=== PATIENT | female | born 1955 | race Caucasian/White ===

== ENCOUNTER → 2023-03-18 12:25 | Outpatient (REF) | payer OTHER, SELFPAY | LOC: MRI 3T 12:25 | PROVIDERS: ATTENDING PHYSICIAN Internal Medicine | DX: N28.1 Cyst of kidney, acquired (principal) | CPT/HCPCS: 74183; A9575 ==

== ENCOUNTER → 2023-07-04 08:54 | Outpatient (REF) | payer OTHER, SELFPAY | LOC: WDC 08:54 | PROVIDERS: ATTENDING PHYSICIAN Internal Medicine | DX: R92.2 Inconclusive mammogram (principal) | CPT/HCPCS: 76641 ==

== ENCOUNTER → 2023-12-26 08:41 | Outpatient (REF) | payer OTHER, SELFPAY | LOC: PAVMRI 08:41 | PROVIDERS: ATTENDING PHYSICIAN Internal Medicine | DX: N28.1 Cyst of kidney, acquired (principal) | CPT/HCPCS: 74183; A9575 ==

== ENCOUNTER 2024-03-25 20:49 | Observation (INO) | payer MEDICARE, OTHER, SELFPAY ==
[2024-03-25 15:10] VITALS: BP 134/87
[2024-03-25 15:41] LABS: ALT (SGPT) 31 U/L (0-35); AST (SGOT) 38 U/L (14-36); Albumin 4.8 g/dl (3.5-5.0); Alkaline Phosphatase 72 U/L (38-126); Blood Urea Nitrogen 13 mg/dl (7-17); Calcium 9.5 mg/dl (8.4-10.2); Carbon Dioxide 29 mmol/L (22-30); Chloride 99 mmol/L (98-107); Glucose 123 mg/dl (70-99); Potassium 3.5 mmol/L (3.5-5.1); Sodium 137 mmol/L (135-145); Total Protein 7.4 g/dl (6.3-8.2); eGFR > 60.00
[2024-03-25 15:42] LABS: Hematocrit 39.9 % (37.0-47.0); Hemoglobin 13.4 g/dL (12.0-16.0); Mean Corp Hgb Conc. 33.6 g/dL (33.0-37.0); Mean Corpuscular Hgb 29.5 pg (27.0-31.0); Mean Corpuscular Volume 87.9 fL (81.0-99.0); Mean Platelet Volume 9.9 fL (7.4-10.4); Platelet Count 197 10^3/uL (130-400); Red Blood Cell Count 4.54 10^6/uL (4.20-5.40); Red Cell Dist. Width 12.2 % (11.5-14.5); White Blood Cell Count 4.5 10^3/uL (4.8-10.8)
[2024-03-25 15:52] LABS: Troponin I < 0.012 ng/ml
[2024-03-25 16:09] LABS: % Basophils 0.7 % (0-2); % Eosinophils 4.7 % (0-6); % Immature Granulocytes 0.4 % (0-0.5); % Lymphocytes 36.9 % (20.5-51.1); % Monocytes 11.7 % (1.7-9.3); % Neutrophils 45.6 % (42.2-75.2); Absolute Eosinophils 0.2 10^3/uL (0-0.7); Absolute Lymphocytes 1.6 10^3/uL (1.2-3.4); Absolute Monocytes 0.5 10^3/uL (0.1-0.6); Nucleated Red Blood Cells % 0 %
--- NOTE | 2024-03-25 17:38 | ED.GENMED ---
History of Present Illness
General
Chief Complaint: Chest Pain
Source: patient
Time Seen by Provider: 03/25/24 17:19
History of Present Illness
History of Present Illness:
68-year-old female presents to the emergency room complaining of chest discomfort. Patient states that she has been having this chest discomfort intermittently for the past 3 or so days. It seems to occur when she eats. It goes away when she
rests. She denies associated diaphoresis or nausea. She has no discomfort at the time of my evaluation.
Past History
Past History
ED Past Medical History: GERD, Hypothyroidism and Other (Pulmonary embolus)
ED Past Surgical History: and Orthopedic (Ankle surgery)
Social History
Tobacco: Non-smoker
Alcohol: Occasional
Drug: None
Living: with family
Employment: Employed
Phy Exam
Physical Exam
Physical Exam:
General: Awake, Alert, Oriented X3. No acute distress.
Vitals: unremarkable
Head: Atraumatic
Eyes: Pupils equal, EOMI
Throat: Airway intact, no exudates
Neck: Trachea midline
Lungs: Clear and equal b/l
Heart: Regular rate, no murmurs
Abd: Soft, Nontender, No pulsatile mass
Neuro: Nonfocal
Skin: Warm, dry, no rash
Extremities: pulses equal b/l, no edema
Scores
Heart Score for Chest Pain Patients
STEMI patient?: No
History: Highly Suspicious
ECG: Nonspecific Repolarization
Age: >/= 65 years
Risk Factors: 1 or 2 Risk Factors
Troponin: </= Normal Limit
Heart Score for Chest Pain Patients: 6
Heart Score Risk: 20.3% MACE over next 6 weeks
Course
Orders/Labs/Results
Orders:
Orders
03/25/24 15:06
ECG [Electrocardiogram (*1)] Urgent
Reason for Study: Chest Pain
EKG- Treatment ONCE
03/25/24 15:19
Complete Blood Count/With Diff Urgent
Comprehensive Metabolic Panel Urgent
Troponin I Urgent
03/25/24 17:37
CR Chest - 2 Views Urgent
Comment:
Reason For Exam: chest pain
03/25/24 18:28
Troponin I Urgent
03/25/24 18:36
Electrocardiogram (*1) Urgent
Reason for Study: Chest Pain
EKG- Treatment ONCE
03/25/24 18:46
Acetaminophen [Tylenol] 650 mg .ROUTE .STK-MED ONE
03/25/24 19:11
Acetaminophen [Tylenol] 650 mg PO NOW STA
03/25/24 19:15
EKG [Electrocardiogram (*1)] Urgent
Reason for Study: Chest Pain
EKG- Treatment ONCE
03/25/24 19:38
CT Chest PE Study Urgent
Comment:
Reason For Exam: chest pain
03/25/24 19:41
Aspirin Chewable [Low Strength Aspirin] 324 mg PO NOW STA
Abnormal Lab Results
03/25/24
15:19
WBC 4.5 L 10^3/uL
(4.8-10.8)
Monocytes % 11.7 H %
(1.7-9.3)
Glucose 123 H mg/dl
(70-99)
AST 38 H U/L
(14-36)
03/25/24 15:19
03/25/24 15:19
Vital Signs
Initial and Last Documented VS:
Initial Vital Signs
Temp Pulse Resp BP Pulse Ox
98.0 F 86 16 134/87 95
03/25/24 15:10 03/25/24 15:10 03/25/24 15:10 03/25/24 15:10 03/25/24 15:10
Last Documented Vital Signs
Temp Pulse Resp BP Pulse Ox
98.0 F 78 11 133/92 93
03/25/24 15:10 03/25/24 19:30 03/25/24 19:30 03/25/24 19:14 03/25/24 19:30
MDM/Problems Addressed
Differential Diagnosis Includes:
usa, nstemi, chest wall pain, PE
MDM/Problems Addressed:
Patient presents with chest pain which is currently exertional. No significant chest pain or shortness of breath at rest. EKG shows some Q waves in the inferior leads suspicious for previous inferior wall OK but the patient does not believe she
has any known history of coronary artery disease. Labs are all reassuring here with a troponin that is negative x 2. However her story makes me uncomfortable sending her home. I discussed the patient's presentation with Dr. Beach who is
on-call for cardiology. She agrees with observation overnight and cardiology evaluation in the morning. Toward the end of the patient's evaluation she added that she has a history of a DVT but no history of PE. I will obtain a CT of the chest
though my suspicion for PE is fairly low however I do not have a good explanation for the chest pain at this point. Serial EKGs have not shown any significant change.
Chronic conditions affecting care: HTN
*Radiology
Radiology exam reviewed: preliminary read by ED provider (No acute abnormalities on the chest x-ray)
*Pulse Oximetry
Patient hypoxic: no
*EKG
Interpreted by ED Provider?: Yes
Heart Rate: 83
Rate: normal
Rhythm: sinus
QRS Pattern: other (Nonspecific intraventricular conduction delay, Q waves noted in two 3-02/12.)
Ischemia: non-specific ST changes
*Pattern Grader Cutter Interpretation
Rate: normal
Interpretation: normal
Rhythm: sinus
*Critical Care Note
Total Time (30-74mins, 75-104mins- exclusive of procedures): Not Applicable
ED Attending Note
-
Portions of this chart may have been created with voice recognition software.� Occasional wrong word or��sound alike� substitutions may have occurred due to the inherent limitations of voice recognition software.
Discharge Plan
Departure
Patient Disposition: Admit
Date of Disposition: 03/25/24
Time of Disposition: 19:41
Admit to: Telemetry
Presentation/result/management discussed w/ accepting MD/DO: Hospitalist
Condition: Fair
Discharge Problem:
Chest pain
Referrals:
Gracie Chapin MD [Family Provider] -
Interventions
Interventions:
*Risk Screen - Suicide Last Done: 03/25/24 15:10
*General Assessment Last Done: 03/25/24 15:10
*Neglect/Abuse Screening Last Done: 03/25/24 15:10
*ED COVID-19 Vaccine History Last Done: 03/25/24 15:10
ED- Cardiac Assessment Last Done: 03/25/24 17:54
Discharge Date and Time
Print Language: EAST [place]
[2024-03-25 17:53] VITALS: BMI 27.0
[2024-03-25 19:07] LABS: Troponin I < 0.012 ng/ml
[2024-03-25] MEDS: TYLENOL 650 MG PO (19:11)
[2024-03-25 19:14] VITALS: BP 133/92
[2024-03-25] MEDS: LOW STRENGTH ASPIRIN 324 MG PO (19:43)
--- NOTE | 2024-03-25 19:48 | HPS.HSE ---
Addendum entered and electronically signed by Saurav Rodriguez DO 03/25/24 21:54:
Patient seen and examined independently. Agree with findings and plan as set forth by KENNETH Martinez.
Patient is a 68y F with PMH significant for hypothyroidism and prior DVT / PE who presents to ED complaining of chest pain. Patient reports intermittent symptoms of chest discomfort and dyspnea with activity over the past 2 weeks or so. Prior
to that she was very active, jogged regularly and had no issues. She has recently noted heart pounding and pain with heartbeat. This occurs with activity, but has also woken her from sleep and occurred at rest. She has appreciated sense of
dyspnea with activity such as climbing stairs, etc. These symptoms have progressed over the past 2 weeks and today she presents to the ED for further evaluation.
Patient notes that this has been a stressful few weeks due to family illness ([id number] ).
She has been traveling [id number] to [place].
Ass:
Chest Pain
Hypothyroidism
History of DVT / PE
Plan:
Observe overnight for further evaluation and treatment.
EKG is unremarkable with no evidence for active ischemia.
Troponin is undetectable x 2 sets thus far.
ED spoke with Cardiology who requested hospitalization overnight and serial enzymes.
Repeat troponin. Follow for changes in symptoms.
Cardiology eval in AM for additional recommendations.
CT done as well given recent travel history and prior h/o DVT - no evidence for PE.
Note made of - likely chronic - T6 and T7 vertebral compression fractures (mild).
Original Note:
Family Physician
-
Family Physician: Gracie Chapin
Chief Complaint
-
chest pain
History of Present Illness
Patient is a 68-year-old female with past medical history significant for hypothyroidism and Hx DVT/PE who presented to [facility] ED for evaluation of chest pain. Patient reports intermittent chest pain on and off for several months, she
reports a lot of external stressors including sick MIL, of new twin grandchildren and responsibility of disabled brother that she originally was all contributing to symptomatic anxiety. She states most recently she has noticed that she has had
exertional chest pain with items like walking up the stairs is associated with shortness of breath and sometimes nausea. She describes chest discomfort as it feeling like someone is squeezing water out of a towel, it does not radiate and resolves
with rest. This morning she stated she woke with the pain from a sleep and decided it was time to get evaluated. She denies any fever, chills, dizziness, palpitations, cough, vomiting, constipation, diarrhea or urinary symptoms.
Medical History
Past Medical History
Past Medical History: Reports Other
Additional Past Medical History:
hypothyroidism
Hx DVT/PE
Past Surgical History: Reports Other
Additional Past Surgical History:
x2
breast biopsy
Fx right ankle repair
Social History
Tobacco: Former Smoker
Alcohol: Occasional
Drug: None
Personal:
Living: With Family
Employment: Retired
Family History
Family History: Other (Dad: CAD; Mother: Breast ca)
Allergies / Home Medications
Allergies reflects when Allergies were last updated in [facility].
Home Medications with original date entered in [facility]
Allergy/Medication List:
Allergies
Allergy/AdvReac Type Severity Reaction Status Date / Time
narcotics Allergy Unknown Uncoded 03/25/24 15:15
Home Medications
levothyroxine 75 mcg tablet 75 mcg PO DAILY 03/25/24
Review of Systems
-
History Source: Patient
Constitutional: Reports Sleep Disturbance
EENT: Reports No Symptoms
Respiratory: Reports Other (shortness of breath with exertion )
Cardiac: Reports Chest Pain
Abdomen/GI: Reports Nausea
: Reports No Symptoms
Musculoskeletal: Reports No Symptoms
Skin: Reports No Symptoms
Neurological: Reports No Symptoms
Endocrine: Reports No Symptoms
Hematologic/Lymphatic: Reports No Symptoms
Psych: Reports No Symptoms
Physical Exam
Vital Signs
Vital Signs
Temp Pulse Resp BP Pulse Ox
98.0 F 78 11 133/92 93
03/25/24 15:10 03/25/24 19:30 03/25/24 19:30 03/25/24 19:14 03/25/24 19:30
Physical Exam
General: Well Developed, Well Nourished, No Apparent Distress, Comfortable and Conversant
HEENT: NormoCephalic, Moist mucous membranes, Atraumatic, PERRLA, [place] Conjunctivae, Nose Appears Normal and Ears Appear Normal
Respiratory: Clear and Non Labored Respirations
Cardiac: S1/S2 and Regular Rhythm; No Murmur, Rub or Gallop
Breast: Deferred by me
GI: Soft, Non Tender, Non Distended and Normal Bowel Sounds; No Organomegaly
Rectal: Deferred by Provider
Genito-urinary: Deferred by me
Musculoskeletal: No Clubbing, No Cyanosis and No Edema
Skin: Warm and IV/Catheter Site; No Rash
Neuro: Awake, Alert, AO x 3 and Nonfocal/grossly intact
Psych: Calm and Intact Judgment/Insight
Laboratory Results
-
03/25/24 15:19
03/25/24 15:19
Laboratory Results
Total Bilirubin 1.0 mg/dl (0.2-1.3) 03/25/24 15:19
AST 38 U/L (14-36) H 03/25/24 15:19
ALT 31 U/L (0-35) 03/25/24 15:19
Alkaline Phosphatase 72 U/L (38-126) 03/25/24 15:19
Troponin I < 0.012 ng/ml 03/25/24 18:28
Data Reviewed
-
Medical Tests (Nuc Med, Echo, EKG etc): Report Reviewed by me (EKG: NORMAL SINUS RHYTHM INFERIOR INFARCT (CITED ON OR BEFORE 25-MAR-2024) ABNORMAL ECG)
Lab Data: Labs Reviewed by me
Impression/Plan
-
IMPRESSION/PLAN:
#chest pain
EKG: NORMAL SINUS RHYTHM
INFERIOR INFARCT (CITED ON OR BEFORE 25-MAR-2024)
Trop: <0.012, 0.012
- admit to telemetry
- consult cardiology
- trend troponin
#hypothyroidism
- continue levothyroxine
#Hx DVT/PE
Code status: Full code
DVT prophylaxis: SCDs
[2024-03-25 20:00] VITALS: BP 131/105
[2024-03-25 20:13] VITALS: BP 130/78
[2024-03-25 21:00] VITALS: BP 124/75
--- NOTE | 2024-03-25 21:30 | PTCARENOTE ---
Patient arrived on unit from ED. Patient ambulated to bed. A&Ox3. Oriented to unit. Call mena within reach. Care ongoing.
[2024-03-25 21:37] VITALS: BP 134/83; BMI 28.0
[2024-03-25 23:07] LABS: Troponin I < 0.012 ng/ml
[2024-03-26 03:40] VITALS: BP 114/76
[2024-03-26 04:06] LABS: Hematocrit 37.8 % (37.0-47.0); Hemoglobin 12.8 g/dL (12.0-16.0); Mean Corp Hgb Conc. 33.9 g/dL (33.0-37.0); Mean Corpuscular Hgb 29.2 pg (27.0-31.0); Mean Corpuscular Volume 86.3 fL (81.0-99.0); Platelet Count 184 10^3/uL (130-400); Red Blood Cell Count 4.38 10^6/uL (4.20-5.40); Red Cell Dist. Width 12.1 % (11.5-14.5); White Blood Cell Count 4.7 10^3/uL (4.8-10.8)
[2024-03-26 04:21] LABS: ALT (SGPT) 27 U/L (0-35); AST (SGOT) 32 U/L (14-36); Albumin 4.1 g/dl (3.5-5.0); Alkaline Phosphatase 71 U/L (38-126); Blood Urea Nitrogen 10 mg/dl (7-17); Calcium 9.2 mg/dl (8.4-10.2); Carbon Dioxide 28 mmol/L (22-30); Chloride 102 mmol/L (98-107); Estimated Creatinine Clearance 81 ml/min; Glucose 96 mg/dl (70-99); HDL Cholesterol 44 mg/dl; LDL Cholesterol, Calculated 100 mg/dl; Sodium 138 mmol/L (135-145); Total Bilirubin 0.9 mg/dl (0.2-1.3); Total Cholesterol 167 mg/dl (50-199); Total Protein 6.5 g/dl (6.3-8.2); Triglyceride 117 mg/dl (10-149); Very Low Density Lipoprotein 23 mg/dl (0-30); eGFR > 60.00
[2024-03-26 04:33] LABS: Troponin I < 0.012 ng/ml
[2024-03-26] MEDS: SYNTHROID 75 MCG PO (05:03)
[2024-03-26 08:05] VITALS: BP 113/69
[2024-03-26 09:43] LABS: Glycohemoglobin (HgbA1c) 5.6 % (4.0-5.6)
--- NOTE | 2024-03-26 10:16 | CM ---
Reviewed the chart notes and spoke with the patient at the bedside. Patient admitted under observational status. The WALKER letter was provided and explained. The patient had no questions with regards to the letter.
The patient resides with her spouse in a two story home with two steps to enter. The patient reports no DME/SNF in the past, but did have VN. Agency name unknown. The patient confirmed her pharmacy of choice is the [facility]. continues to be available to patient/family and is monitoring medical plan for needs at discharge.
Plan: Discharge to home when medically stable. No needs identified at this time.
--- NOTE | 2024-03-26 13:54 | CON.CAR ---
Addendum entered and electronically signed by Eileen Terry DO 03/26/24 16:34:
I saw and examined the patient.
The Ski Lift Attendant's note was reviewed and I agree with the note.
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 Patient reports pounding heart sensation starting several weeks ago. Pounding heart sensation with activity and sometimes at rest. Patient has been under an incredible amount of
stress dealing with her chronically ill brother in [place], the recent unexpected illness and passing of her mother in law and the joyful stress of new twin grandchildren in [place]. Patient has been travelling from [place] to [place] and then [place] to [place]
frequently. Patient describes carrying her twin grandbabies and having chest pounding such that she had to take a break from activity. Then this past weekend she had chest pain that she thought was indigestion, but described as SSCP while getting
ready for a [employer] democrat and then again while at the democrat. Then Saturday after grocery shopping the pain was so bad that she could not load groceries into the car and more pain. She had more pain yesterday and it lasted for hours so she came to
[facility]. Pain seemed to get worse in the ER described as pounding in her chest and pain with every beat of her heart that was worse with activity. She leaves this weekend for a [employer] cruise.
General: No acute distress, AAOX3
Neck: Negative JVD
Heart: Regular, Negative S3 positive S1/S2, Negative S4, No murmur
Lungs: CTA b/l, negative wheezes/rales/rhonchi
Abd: Positive BS, NT/ND, neg rebound/rigidity/guarding
Ext: Negative cyanosis/clubbing/edema
Neuro: nonfocal
Plan:
Atypical chest pain, unlikely to be related to obstructive coronary artery disease
-Twelve-lead EKG normal sinus rhythm with inferior infarct pattern. No dynamic ST-T wave changes
-Cardiac troponin I serially undetected, less than 0.012
-CTA chest PE study 01/12/2025. No PE. Aorta without aneurysm or dissection. No pericardial effusion. Lungs hypoinflated with mild groundglass opacity. No consolidation or pneumonia. She also has a age-indeterminate T6 and T7 vertebral
compression deformities likely chronic.
-Stress echocardiogram done today was reviewed with patient. She exercised for 9 minutes 1 seconds achieving 10 METS and 98% MPHR. Stress EKG negative for ischemia. Stress echocardiogram imaging negative for ischemia.
Family history for coronary artery disease
-Will arrange for outpatient cardiac follow-up in the office for cardiac preventative care
-Hemoglobin A1c top normal, 5.6%.
-Blood pressure normotensive not requiring medication
-BUN/creatinine normal, 10/0.7. Sodium potassium normal 38/4. LFTs within normal limits.
-Total cholesterol 167, LDL 100, HDL 44, triglycerides 117
-Hemoglobin 12.8
-We discussed cardiac healthy diet, exercise and symptom monitoring.
History of hypothyroidism on levothyroxine�TSH pending
History of DVT and PE with brief VD RF in January 2005
-Follow-up with primary care physician regarding mild groundglass opacities noted on CTA
-CTA negative for PE
Outpatient cardiac follow-up to be arranged
Discussed with hospitalist
Will sign off, recall if needed
Original Note:
Consultation
Consultation Request
Date/Time Consultation Requested: 03/25/24 at 2148
Date/Time Consultation Performed: 03/26/24 at 1354
Requesting Provider: Dr. Gomez
Performing Provider: Dr. Terry
Reason for Consultation: chest pain
Medical History
-
History of Present Illness:
Patient came to [facility] with chest pain and cardiology is now consulted. Patient reports pounding heart sensation starting several weeks ago. Pounding heart sensation with activity and sometimes at rest. Patient has been under an incredible amount of
stress dealing with her chronically ill brother in [place], the recent unexpected illness and passing of her mother in law and the joyful stress of new twin grandchildren in [place]. Patient has been travelling from [place] to [place] and then [place] to
frequently. Patient describes carrying her twin grandbabies and having chest pounding such that she had to take a break from activity. Then this past weekend she had chest pain that she thought was indigestion, but described as SSCP while getting
ready for a [employer] democrat and then again while at the democrat. Then Saturday after grocery shopping the pain was so bad that she could not load groceries into the car and more pain. She had more pain yesterday and it lasted for hours so she came to
[facility]. Pain seemed to get worse in the ER described as pounding in her chest and pain with every beat of her heart that was worse with activity.
PMH:
h/o DVT and PE with respiratory failure and brief VDRF 01/2005
Hypothyroid
Past Medical History
Past Medical History: Other (in HPI)
Past Surgical History: and Orthopedic
Social History
Tobacco: Former Smoker
Alcohol: Occasional
Drug: None
Personal:
Living: With Family
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
Family History
Family History: Cancer, Diabetes and Hypertension
Allergies / Home Medications
Allergy/AdvReac Type Severity Reaction Status Date / Time
narcotics Allergy Unknown Uncoded 03/25/24 15:15
�Medication �Instructions �Recorded �Confirmed �Type
levothyroxine 75 mcg tablet 75 mcg PO DAILY Thyroid 03/25/24 03/25/24 History
Review of Systems
-
History Source: Patient and Family ( sitting bedside)
All other systems: Negative unless noted
Physical Exam
Vital Signs
Temp Pulse Resp BP Pulse Ox
97.9 F 66 14 113/69 97
03/26/24 08:05 03/26/24 08:05 03/26/24 08:05 03/26/24 08:05 03/26/24 08:05
GEN: NAD. AAOx3
HEENT: EOMI, MMM
LUNGS: RA. CTA B/L, no wheeze
CV: SR on tele. Reg, S1/S2, no murmur
ABD: soft, BS+, NT, ND
EXT: No clubbing, cyanosis, lesions or edema B/L
NEURO: Gross non-focal
SKIN: Warm, dry and pink. No rash
Lab Results
03/26/24 03:43
03/26/24 03:43
Troponin I < 0.012 ng/ml 03/26/24 03:43
Impression / Plan
-
PCP: Dr. Chapin
Cardiology: Seen by Dr. Mccormick in 2005
Impression:
Admitted with chest pain 03/25/24
Serially undetectable Troponin
h/o DVT and PE with respiratory failure and brief VDRF 01/2005
Hypothyroid
Echo 02/15/2005: EF 60%, no evidence of intracardiac clot or tumor, no evidence of pericardial effusion, mitral aortic and tricuspid valves all appear normal
Echo 03/26/2024: Preliminary study, preserved EF, no significant valve disease
Plan:
-Patient came to [facility] with chest pain and cardiology is now consulted. Patient reports pounding heart sensation starting several weeks ago. Pounding heart sensation with activity and sometimes at rest. Patient has been under an incredible amount of
stress dealing with her chronically ill brother in [place], the recent unexpected illness and passing of her mother in law and the joyful stress of new twin grandchildren in [place]. Patient has been travelling from [place] to [place] and then [place] to [place]
frequently. Patient describes carrying her twin grandbabies and having chest pounding such that she had to take a break from activity. Then this past weekend she had chest pain that she thought was indigestion, but described as SSCP while getting
ready for a [employer] democrat and then again while at the democrat. Then Saturday after grocery shopping the pain was so bad that she could not load groceries into the car and more pain. She had more pain yesterday and it lasted for hours so she came to
[facility]. Pain seemed to get worse in the ER described as pounding in her chest and pain with every beat of her heart that was worse with activity.
-ECG reviewed by me is SR without acute ST changes.
-Troponin serially undetectable which is reassuring
-Patient with chest pain with activity and reports that she is leaving for a cruise tomorrow making plans for an expeditious outpatient work-up difficult. Will check stress echo now.
-Resting echo with preserved EF and no significant valve disease.
-Patient with h/o DVT/PE in the setting of ankle fracture in 2004, but CT chest was negative for PE last night.
--- NOTE | 2024-03-26 14:22 | W.PN.HOSP.TC ---
Addendum entered and electronically signed by Po Gomez MD 03/26/24 17:20:
[id number]
Addendum entered and electronically signed by Po Gomez MD 03/26/24 17:17:
No obvious abnormalities on stress echocardiogram
Follow-up PCP, cardiology, pulmonary outpatient
Addendum entered and electronically signed by Po Gomez MD 03/26/24 16:35:
Stress test unremarkable;
Follow-up PCP, cardiology, pulmonary outpatient (has groundglass opacity, can follow-up with outpatient pulmonary)
Original Note:
Today's Communication/Plan
-
ECHO
Cards eval
Follow-up TSH with reflex free T4
Heparin subcu for DVT prophylaxis
Possible DC today after echo, cardiology evaluation versus further inpatient workup
Assessment / Plan
Assessment / Plan
Physical Exam
General: Well Developed, Well Nourished, No Apparent Distress, Comfortable and Conversant
HEENT: NormoCephalic, Moist mucous membranes, Atraumatic, PERRLA, [place] Conjunctivae, Nose Appears Normal and Ears Appear Normal
Respiratory: Clear and Non Labored Respirations
Cardiac: S1/S2 and Regular Rhythm; No Murmur, Rub or Gallop
Breast: Deferred by me
GI: Soft, Non Tender, Non Distended and Normal Bowel Sounds; No Organomegaly
Rectal: Deferred by Provider
Genito-urinary: Deferred by me
Musculoskeletal: No Clubbing, No Cyanosis and No Edema
Skin: Warm and IV/Catheter Site; No Rash
Neuro: Awake, Alert, AO x 3 and Nonfocal/grossly intact
Psych: Calm and Intact Judgment/Insight
#Chest pain
� Troponins negative
� EKG unremarkable
� Possibility of anxiety although difficult to confirm at this time
� Follow-up echocardiogram and decide on further inpatient versus outpatient workup thereafter
� Follow-up cardiology evaluation
� Follow-up TSH with reflex free t4
#Hypothyroidism
� Continue Synthroid
� Follow-up TSH with reflex free t4
#Hx DVT/PE
off anticoagulation
-no pe
-f/u pcp outpatient
#DVT ppx
HSQ
More than 30 minutes spent in discharge including
Final examination of the patient
Summarizing hospital stay
Instructions for continuing care to all relevant caregivers
Preparation of discharge records, prescriptions, and referral forms
Total time spent (37 in minutes):
Anticipated Discharge: Today
Subjective/Interval History
-
Date of Service: March 26, 2024
still with intermittent dull pain
Objective Data
-
Labs:
Laboratory Results
03/26/24
03:43
WBC 4.7 L
Hgb 12.8
Hct 37.8
Plt Count 184
Sodium 138
Potassium 4.0
Chloride 102
Carbon Dioxide 28
BUN 10
Creatinine 0.7
Glucose 96
Calcium 9.2
Total Bilirubin 0.9
AST 32
ALT 27
Alkaline Phosphatase 71
Vital Signs:
Vital Signs
Temp Pulse Resp BP Pulse Ox
97.9 F 66 14 113/69 97
03/26/24 08:05 03/26/24 08:05 03/26/24 08:05 03/26/24 08:05 03/26/24 08:05
I&O
03/25/24 03/26/24 03/27/24
06:59 06:59 06:59
Intake Total 240 / 240
Balance 240 / 240
Review of Systems
-
History Source: Patient
All other systems: Not reviewed unless documented
Data Reviewed
-
Diagnostic Radiology: Report Reviewed by me
CT Scan: Report Reviewed by me
Labs: Labs Reviewed by me
[2024-03-26 15:28] VITALS: BP 123/69
[2024-03-26 16:44] LABS: TSH Reflex To Free T4 7.37 uIU/ml (0.47-4.68)
[2024-03-26 17:13] LABS: Free T4 0.98 ng/dl (0.78-2.19)
--- NOTE | 2024-03-26 17:17 | W.DS.TRANS ---
DC Summary - Communications Project Lead
-
Discharge Instructions:
Discharge Diagnosis/Procedures Chest pain
Diet Low Cholesterol,Low Fat
Blood Work cbc and bmp outpatient with pcp within 1 week
Follow up thyroid panel in 4 weeks with pcp
Instructions:
Stand-Alone Forms:
Changes to Home Medications: No
Discharge Medications:
DC Medications w/original date entered in [facility]
levothyroxine 88 mcg tablet 88 mcg PO DAILY@0600 Thyroid 03/26/24
Home Medication Changes
na
Pending Results: No
== END 2024-03-26 17:53 | disposition home or self-care (01) ==
LOC: 3 WEST ACU 20:49
PROVIDERS: Nurse Practitioner Family; Student in an Organized Health Care Education/Training Program; ADMITTING PHYSICIAN Hospitalist; ATTENDING PHYSICIAN Internal Medicine; EMERGENCY PHYSICIAN Emergency Medicine; FAMILY PHYSICIAN Internal Medicine; OTHER PHYSICIAN Internal Medicine Cardiovascular Disease
DX: R07.89 Other chest pain (principal); E03.9 Hypothyroidism, unspecified; K21.9 Gastro-esophageal reflux disease without esophagitis; M48.54XA Collapsed vertebra, not elsewhere classified, thoracic region, initial encounter for fracture; R94.31 Abnormal electrocardiogram [ECG] [EKG]; E78.5 Hyperlipidemia, unspecified; I11.9 Hypertensive heart disease without heart failure; F41.9 Anxiety disorder, unspecified; Z86.718 Personal history of other venous thrombosis and embolism; Z87.891 Personal history of nicotine dependence; Z86.711 Personal history of pulmonary embolism; Z80.3 Family history of malignant neoplasm of breast; Z82.49 Family history of ischemic heart disease and other diseases of the circulatory system; Z88.5 Allergy status to narcotic agent; Z79.890 Hormone replacement therapy; Z83.3 Family history of diabetes mellitus
CPT/HCPCS: 93017; 71046; 71275; 80053; 80061; 83036; 84439; 84443; 84484; 85025; 85027; 93005; 93306; 93350; 99285; G0378; Q9967

== ENCOUNTER → 2024-05-29 13:42 | Outpatient (REF) | payer MEDICARE, OTHER, SELFPAY | LOC: DHSLP 13:42 | PROVIDERS: ATTENDING PHYSICIAN Internal Medicine Critical Care Medicine | DX: G47.30 Sleep apnea, unspecified (principal); R40.0 Somnolence; R06.83 Snoring; J45.909 Unspecified asthma, uncomplicated | CPT/HCPCS: 95800 ==

== ENCOUNTER → 2024-08-20 10:17 | Outpatient (REF) | payer MEDICARE, OTHER, SELFPAY | LOC: HWRAD 10:17 | PROVIDERS: ATTENDING PHYSICIAN Internal Medicine Critical Care Medicine; FAMILY PHYSICIAN Internal Medicine | DX: R93.89 Abnormal findings on diagnostic imaging of other specified body structures (principal) | CPT/HCPCS: 71250 ==

== ENCOUNTER → 2024-09-23 08:26 | Outpatient (REF) | payer MEDICARE, OTHER, SELFPAY | LOC: RAD 08:26 | PROVIDERS: ATTENDING PHYSICIAN Internal Medicine | DX: Z78.0 Asymptomatic menopausal state (principal); E03.9 Hypothyroidism, unspecified; E78.00 Pure hypercholesterolemia, unspecified | CPT/HCPCS: 36415; 77080; 84443 ==